=== PATIENT | female | born 1950 | race Two or more races ===

== ENCOUNTER 2018-01-05 12:33 | Outpatient (CLI) | payer MEDICARE, OTHER | END 2018-01-05 23:59 | disposition home or self-care (01) | LOC: WOU 12:33 | PROVIDERS: ATTEND Surgery | DX: N63.31 Unspecified lump in axillary tail of the right breast (principal); E21.3 Hyperparathyroidism, unspecified; R92.8 Other abnormal and inconclusive findings on diagnostic imaging of breast | CPT/HCPCS: G0463; Z7610 ==

== ENCOUNTER 2018-03-30 12:59 | Outpatient (CLI) | payer MEDICARE, OTHER ==
[2018-03-30 13:31] LABS: BASOPHILS % (AUTO) 0.3 % (0.0-2.0); EOSINOPHILS % (AUTO) 2.1 % (0.0-6.0); HEMATOCRIT 39 % (33-45); HEMOGLOBIN 12.8 g/dL (11.5-14.8); LYMPHOCYTES # (AUTO) 2.2 /CMM (0.8-4.8); LYMPHOCYTES % (AUTO) 35.3 % (20.0-44.0); MEAN CORPUSCULAR HGB CONC 33 g/dl (31.0-36.0); MEAN CORPUSCULAR VOLUME 85 fL (82-100); MONOCYTES # (AUTO) 0.5 /CMM (0.1-1.30); MONOCYTES % (AUTO) 8.3 % (2.0-12.0); NEUTROPHILS # (AUTO) 3.4 /CMM (1.8-8.9); PLATELET COUNT (AUTO) 273 /CMM (150-450); RED BLOOD CELL COUNT(AUTO) 4.57 MIL/uL (4.0-5.2); WHITE BLOOD COUNT (AUTO) 6.3 K/uL (4.3-11.0)
[2018-03-30 13:45] LABS: ALBUMIN 4.1 g/dL (3.4-5.0); BILIRUBIN,TOTAL 0.7 mg/dL (0.2-1.0); CALCIUM, SERUM 10.3 mg/dL (8.5-10.1); CREATININE 0.7 mg/dL (0.6-1.3); POTASSIUM 3.6 mmol/L (3.5-5.1); TOTAL PROTEIN, SERUM 7.6 g/dL (6.4-8.2)
== END 2018-03-30 23:59 | disposition home or self-care (01) ==
LOC: LAB 12:59
DX: I47.1 Supraventricular tachycardia (principal)
CPT/HCPCS: 36415; 71045-TC; 80053-TC; 85025-TC; 85610-TC

== ENCOUNTER 2019-04-26 12:25 | Outpatient (CLI) | payer MEDICARE, OTHER | END 2019-04-26 23:59 | disposition home or self-care (01) | LOC: WOU 12:25 | PROVIDERS: ATTEND Surgery | DX: R92.8 Other abnormal and inconclusive findings on diagnostic imaging of breast (principal); Z80.3 Family history of malignant neoplasm of breast; E07.9 Disorder of thyroid, unspecified | CPT/HCPCS: G0463 ==

== ENCOUNTER 2021-06-23 08:30 | Outpatient (CLI) | payer MEDICARE, OTHER | END 2021-06-23 23:59 | disposition home or self-care (01) | LOC: WOU 08:30 | PROVIDERS: ATTEND Surgery | DX: R92.8 Other abnormal and inconclusive findings on diagnostic imaging of breast (principal); Z80.3 Family history of malignant neoplasm of breast | CPT/HCPCS: G0463 ==